=== PATIENT | female | born 1960 | race Caucasian/White ===

== ENCOUNTER 2018-09-09 10:12 | Emergency (ER) | payer BC ==
[2018-09-09] MEDS ORDERED: LORazepam INJ* 2 MG/ML 1 ML VIAL IM ONE (10:38)
--- NOTE | 2018-09-09 10:40 | ED ---
Throat Pain/Nasal Congestion - HPI Summary HPI Summary: Patient is a 57-year-old female who presents emergency department for possible esophageal foreign body. Patient states she just prior to arrival she took her normal 5 morning pills altogether and feels as though a pill is stuck in her throat. Patient states she took pills with a sip of coffee. She denies chest pain or shortness of breath. She's never had esophageal foreign body in the past and no history of strictures and has never had a scope done. Symptoms are mild in severity. Patient states she is able to swallow water but she is having a lot of pain with swallowing. - History of Current Complaint Chief Complaint: EDForeignBodyEsophag Time Seen by Provider: 09/09/18 10:27 Hx Obtained From: Patient - Allergies/Home Medications Allergies/Adverse Reactions: Allergies Allergy/AdvReac Type Severity Reaction Status Date / Time Sulfa (Sulfonamide Allergy Swelling Verified 09/09/18 10:25 Antibiotics) Home Medications: Home Medications ALPRAZolam [Alprazolam] 0.25 mg PO TID PRN 09/09/18 [History Confirmed 09/09/18] Amlodipine Besylate [Norvasc] 10 mg PO DAILY 09/09/18 [History Confirmed ] Dexmethylphenidate HCl [Dexmethylphenidate HCl ER] 20 mg PO DAILY 09/09/18 [ History Confirmed 09/09/18] PMH/Surg Hx/FS Hx/Imm Hx Previously Healthy: Yes Endocrine/Hematology History: Denies: Hx Diabetes, Hx Thyroid Disease Cardiovascular History: Denies: Hx Congestive Heart Failure, Hx Hypertension Respiratory History: Denies: Hx Asthma, Hx Chronic Obstructive Pulmonary Disease (COPD) GI History: Denies: Hx Ulcer History: Denies: Hx Renal Disease - Surgical History Surgery Procedure, Year, and Place: I&D left Elbow MRSA 2010 Infectious Disease History: No Infectious Disease History: Reports: Hx of Known/Suspected MRSA - 2009 Denies: Hx Hepatitis, Hx Human Immunodeficiency Virus (HIV), Traveled Outside the [place] in Last 30 Days - Family History Known Family History: Positive: Non-Contributory - Social History Occupation: Employed Full-time Lives: With Family Alcohol Use: None Substance Use Type: Reports: None Smoking Status (MU): Never Smoked Tobacco Review of Systems Positive: Other - Throat pain Cardiovascular: Negative Respiratory: Negative All Other Systems Reviewed And Are Negative: Yes Physical Exam Triage Information Reviewed: Yes Vital Signs On Initial Exam: Initial Vitals Temp Pulse Resp BP Pulse Ox 97.1 F 120 20 186/126 98 09/09/18 10:17 09/09/18 10:17 09/09/18 10:17 09/09/18 10:17 09/09/18 10:17 Vital Signs Reviewed: Yes Appearance: Positive: Pain Distress - Pt. sitting up in bed, crying, very anxious. Nontoxic. Friend present. Skin: Positive: Warm, Dry Head/Face: Positive: Normal Head/Face Inspection Eyes: Positive: Normal, EOMI, JULIO ENT: Positive: Other - Oropharynx is patent without edema. No drooling. Patient tolerating secretions. Neck: Positive: Supple Respiratory/Lung Sounds: Positive: Clear to Auscultation, Breath Sounds Present. Negative: Rales, Rhonchi, Wheezes Cardiovascular: Positive: Normal, RRR Neurological: Positive: Normal, CN Intact II-III Psychiatric: Positive: Affect/Mood Appropriate Diagnostics - Vital Signs Vital Signs Temp Pulse Resp BP Pulse Ox 09/09/18 10:18 123 97 09/09/18 10:17 97.1 F 121 20 186/126 99 - Laboratory Result Diagrams: 09/09/18 12:05 Lab Statement: Any lab studies that have been ordered have been reviewed, and results considered in the medical decision making process. EENT Course/Dx - Course Course Of Treatment: Patient presenting in distress for possible esophageal foreign body. She is tolerating her secretions and is able to swallow water. No respiratory distress. Blood pressure is elevated with vital signs are otherwise normal. Patient states she does have a history of anxiety and request anxiety medication. Patient was given an IM dose of Ativan. We'll check x-ray for further evaluation. X-rays negative for foreign body, reading per radiologist. On reexamination after Ativan patient is calmer but she is still trying to gag herself and throw up complaining of pain and foreign body sensation in throat. GI was consulted. I spoke with Dr. Swanson who examined patient and the ER and decided to do an endoscopy in the ER for further evaluation. Please see Dr. Swanson's procedure note for further details. It was found that pt. actually had her partial denture lodge in layrnx. Dr. Swanson was successfully able to remove foreign body. Patient was observed in the ER after procedure for over 3 hours and has had no secondary laryngeal edema. Patient is back to baseline and will be discharged home with her friend. Advised soft diet the next few days. To return to the ER symptoms change or worsen. - Diagnoses Provider Diagnoses: Esophageal foreign body Discharge - Sign-Out/Discharge Documenting (check all that apply): Patient Departure Patient Received Moderate/Deep Sedation with Procedure: No - Discharge Plan Condition: Improved Disposition: HOME Patient Education Materials: Upper Endoscopy (DC) Referrals: Carloz Rich MD [Primary Care Provider] - Additional Instructions: Return to ER for increased pain, throat swelling, difficulty swallowing/ breathing - Billing Disposition and Condition Condition: IMPROVED Disposition: Home
[2018-09-09] MEDS ORDERED: Midazolam* 1 MG/ML 10 ML VIAL (10 MG) ONE (12:23)
[2018-09-09] MEDS ORDERED: fentaNYL* 50 MCG/ML 2 ML VIAL (100 MCG VIAL) ONE (12:23)
[2018-09-09 12:24] LABS: ABS Basophils 0.1 10^3/ul (0-0.2); ABS Eosinophils 0.1 10^3/ul (0-0.6); ABS Lymphocytes 1.9 10^3/ul (1.0-4.8); ABS Monocytes 0.4 10^3/ul (0-0.8); ABS Neutrophils 5.4 10^3/ul (1.5-7.7); ABS Nucleated RBC 0 10^3/ul; Eosinophil % 1.4 %; Hematocrit 41 % (35-47); Hemoglobin 13.6 g/dl (12.0-16.0); Lymphocyte % 24.5 %; Mean Corpuscular HGB Conc 33 g/dl (31-36); Mean Corpuscular Hemoglobin 28 pg (27-31); Mean Corpuscular Volume 85 fL (80-97); Mean Platelet Volume 8.3 fL (7.4-10.4); Nucleated Red Blood Cells % 0; Platelet Count 220 10^3/ul (150-450); Red Blood Count 4.85 10^6/ul (4.00-5.40); Red Cell Distribution Width 14 % (10.5-15); White Blood Count 7.9 10^3/ul (3.5-10.8)
[2018-09-09 12:35] LABS: C Reactive Protein 4.77 mg/L (<8.01)
--- NOTE | 2018-09-09 13:24 | CONS ---
GASTROENTEROLOGY CONSULTATION DATE OF CONSULT: 09/09/18 CONSULTING PHYSICIAN: Frantz Griggs, ER; Carloz Rich, outpatient primary. REASON FOR CONSULTATION: Throat pain with the sense of a pill stuck in her lower throat or upper esophagus. 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 She had slept in and with coffee tried to get down 5 pills all at once. She had a sense of something stuck. It has persisted. She has pain in the lower neck. She denies any history of chronic dysphagia. GERD was listed on a prior history and physical from 15 years ago when she was admitted with chest pain. It is unclear if that was a working formulation after a negative cardiac evaluation. She never had upper endoscopy. She has not been treated recently for acid reflux. She is not on any acid zulma. She denies any prior dysphagia. She came to the emergency room and has been quite distraught and crying but in no respiratory distress on arrival. She says that there is something lodged in her esophagus. Her plain x-ray was negative. She has been able to drink water freely. There has not been any vomiting but she has been attempting to induce emesis. She is in no respiratory distress stil. PAST MEDICAL HISTORY: 1. Anxiety - in addition to the meds on her reconciliation form, she takes Xanax being prescribed 0.25 p.r.n., supplied 10 per year and she says she never uses them up. 2. Obesity. 3. Hypertension. 4. Family history of heart disease - she saw Dr. Farmer for a consult couple of years ago. MEDICATIONS: Zoloft 150 mg, Focalin (generic), and B vitamins. She also takes Xyzal seasonally and a multivitamin. SOCIAL HISTORY: She works at [employer] and has 1 child, a daughter with whom she had dinner last night. She often eats [place] food. She does not have trouble getting that down. REVIEW OF SYSTEMS: No history of seizures, syncope, palpitations, AK, CVA, hepatitis, jaundice. She does have some cysts on a liver CT done a year and a half ago. LFTs are normal. Colonoscopy to work up constipation and rectal bleeding in 2010 was negative with impression of int hroids. PHYSICAL EXAMINATION: She is a distraught woman in ER room 11, crying, saying her throat is in pain. She has no respiratory distress. Her throat is symmetric. Cranial nerves were symmetric. Her tongue appears unremarkable extended. Lungs are clear and heart sounds are regular. The abdomen is mildly obese, symmetric, soft, and nontender. Rectal deferred. Extremities show no asymmetry or edema. LABORATORY DATA: Pending. IMPRESSION: Most likely, she has a chemical irritation from a pill that dispersed in the neck, though she insists the pill itself is stuck. She has not attempted to eat any food today and was comfortable overnight after a full meal. There is a possibility of a cricopharyngeal pouch or other esophageal abnormality. Upper endoscopy to be sure of the situation seems to the best management choice even though she is in no respiratory distress and has no trouble with water. [id number]/[facility] #: [id number] MTDD
--- NOTE | 2018-09-09 14:39 | PRO ---
DATE: 09/09/28 - EMERGENCY DEPT REFERRING PHYSICIAN: Carloz Rich MD.* PROCEDURE: Upper gastrointestinal endoscopy and removal of cricopharyngeal foreign body. INDICATION: This 57-year-old woman came to the emergency room stating that she had pain in her throat after swallowing multiple pills. She stated she had impetuously tried to have 5 pills all at once. Some are large and the largest she thought was generic Focalin. See separate consultation. She had a plain x- ray of the neck, but nothing has shown. It was explained that most likely she had a persistent singe from medication causing caustic injury. She is able to swallow water fine and had no strider. ENDOSCOPIST: Dr. Swanson. MEDICATIONS: Midazolam 9, fentanyl 100. FINDINGS: She is a substantially overweight, but healthy-appearing middle-aged woman in no distress. Again, she had no abnormality to direct oral exam, neck exam, or any strider. She was not coughing. She was positioned left side down and moderate sedation induced. EGD: Larynx - a flesh-colored foreign body was seen at the cricopharyngeus. This turns out to be a dental implant that had no metal in it. It was grasped with a pelican snare and removed. An initial attempt with the pelican snare, then a standard snare, and finally a net was not able to get around the object. Repeat attempt with the pelican snare found an area between a toothed margin to securely grasp it. It was pulled out. Further inspection of the esophagus showed some bruising at the cricopharyngeus from about 16 to 17. There was a little bit of edema especially on the left side. The esophagus beyond 18 cm was normal down to the EG junction at 40, where there was a [id number] hiatal hernia and a few very small focal erosions. Stomach - generally normal mucosa in all areas. No other foreign bodies were seen. Duodenum - wide open pylorus and a normal bulb and second and third portion. IMPRESSION: 1. Esophageal foreign body - removed. The patient post procedure was not stridorous. Her voice was a little hoarse, but there was no respiratory distress. 2. Hiatal hernia with minimal erosive esophagitis. [id number]/[facility] #: [id number] [facility]
[2018-09-09 16:40] VITALS: BP 150/87
== END 2018-09-09 16:45 | disposition home or self-care (01) ==
LOC: ED 10:12
DX: T18.198A Other foreign object in esophagus causing other injury, initial encounter (principal); X58.XXXA Exposure to other specified factors, initial encounter; Y92.9 Unspecified place or not applicable; K44.9 Diaphragmatic hernia without obstruction or gangrene
CPT/HCPCS: 36415; 70360; 82150; 83690; 85025; 86140; 96372; 99156; 99157; 99284; J2060; J2250; J3010

== ENCOUNTER 2018-11-29 09:55 | Emergency (ER) | payer BC, OTHER ==
[2018-11-29 10:23] VITALS: BP 162/98
--- NOTE | 2018-11-29 11:16 | UC ---
Lower Extremity/Ankle HPI - HPI Summary HPI Summary: 58-year-old woman comes in with a chief complaint of left foot pain. Yesterday work patient slipped and fell injuring her left foot at work. Pain is primarily on the medial aspect of the foot. Patient has been able to bear weight but that does give her pain. She has less pain when she elevates it does not bear weight. No skin break. Does report some numbness in that area. No loss of strength. - History of Current Complaint Chief Complaint: UCLowerExtremity Stated Complaint: ANKLE INJURY Time Seen by Provider: 11/29/18 10:50 Pain Intensity: 5 - Allergies/Home Medications Allergies/Adverse Reactions: Allergies Allergy/AdvReac Type Severity Reaction Status Date / Time Sulfa (Sulfonamide Allergy Swelling Verified 11/29/18 10:22 Antibiotics) PMH/Surg Hx/FS Hx/Imm Hx Previously Healthy: Yes Cardiovascular History: Hypertension - Surgical History Surgical History: Yes Surgery Procedure, Year, and Place: I&D left Elbow MRSA 2009 - Family History Known Family History: Positive: Non-Contributory - Social History Alcohol Use: Occasionally Substance Use Type: None Smoking Status (MU): Never Smoked Tobacco Review of Systems All Other Systems Reviewed And Are Negative: Yes Constitutional: Positive: Negative Skin: Positive: Negative Eyes: Positive: Negative ENT: Positive: Negative Respiratory: Positive: Negative Cardiovascular: Positive: Negative Gastrointestinal: Positive: Negative Motor: Positive: Negative Neurovascular: Positive: Negative Musculoskeletal: Positive: Other: - see hpi Neurological: Positive: Negative Psychological: Positive: Negative Is Patient Immunocompromised?: No Physical Exam Triage Information Reviewed: Yes Appearance: Well-Appearing, No Pain Distress, Well-Nourished Vital Signs: Initial Vital Signs Temp 97.9 F 11/29/18 10:20 Pulse 76 11/29/18 10:20 Resp 18 11/29/18 10:20 BP 162/98 11/29/18 10:20 Pulse Ox 99 11/29/18 10:20 Vital Signs Reviewed: Yes Eye Exam: Normal Eyes: Positive: Conjunctiva Clear Neck: Positive: Supple Respiratory: Positive: No respiratory distress Musculoskeletal: Positive: Other: - Left foot is tender to palpation on the medial aspect over the first metatarsal. Patient reports decreased sensation in this area. Normal dorsalis pedis pulses. Normal capillary refill. Ankle is nontender to palpation ankle and foot have full range of motion. Neurological: Positive: Alert, Muscle Tone Normal Psychological Exam: Normal Psychological: Positive: Age Appropriate Behavior Skin Exam: Normal Lower Extremity Course/Dx - Course Course Of Treatment: Patient Name: AJ CHOPRA Medical Record#: [id number] Ordering Physician: Jovanny Valencai MD Acct.#: [id number] : 1960 Age: 58 Sex: F Location: [facility] Exam Date: 11/29/18 1046 ADM Status: REG ER Order Information: FOOT LEFT 3+ VWS Accession Number: [id number] CPT: 24833 Indication: Medial LEFT foot pain. Comparison: December 15, 2015 radiographs. Technique: AP, lateral, and oblique views LEFT foot. REPORT AND IMPRESSION: #. Negative for fracture. #. Periarticular erosions at the medial margin of the head of the first metatarsal with overlying soft tissue swelling and small burden of soft tissue calcifications suspicious for potential gout arthropathy without significant change. Additionally there is mild hallux valgus deformity and osteoarthritis at the first metatarsal phalangeal joint. #. Mild osteoarthritis at the hind and midfoot without significant change. #. Moderate plantar fascia origin bone spur with interval enlargement. <Electronically signed by Olegario Rebolledo MD in OV> 11/29/18 1111 I discussed the foot x-rays with the patient no fracture seen.. Patient was placed in a postop shoe by nursing patient neurovascular intact after placement of the postop shoe. Patient can follow-up with podiatry. At this time she can return to work using the postop shoe as needed. Otherwise treating with ice elevation nonsteroidal anti-inflammatories. - Differential Dx/Diagnosis Provider Diagnosis: Sprain of left foot Discharge - Sign-Out/Discharge Documenting (check all that apply): Patient Departure All imaging exams completed and their final reports reviewed: Yes - Discharge Plan Condition: Stable Disposition: HOME Patient Education Materials: Foot Sprain (ED) Referrals: Carloz Rich MD [Primary Care Provider] - Darlene Centeno DPM [Doctor of Podiatric Medicine] - Additional Instructions: FOLLOW UP WITH PODIATRY. GET RECHECKED SOONER IF YOUR CONDITION WORSENS OR ANY QUESTIONS OR CONCERNS. - Billing Disposition and Condition Condition: STABLE Disposition: Home
== END 2018-11-29 11:40 | disposition home or self-care (01) ==
LOC: UCEAST 09:55
DX: S93.602A Unspecified sprain of left foot, initial encounter (principal); I10 Essential (primary) hypertension; Z88.2 Allergy status to sulfonamides; W01.0XXA Fall on same level from slipping, tripping and stumbling without subsequent striking against object, initial encounter; Y92.9 Unspecified place or not applicable; Y99.0 Civilian activity done for income or pay
CPT/HCPCS: 99212; G0463